=== PATIENT | female | born 1965 | race African-American/Black ===

== ENCOUNTER 2017-10-19 19:55 | Inpatient (IN) | payer MEDICAID ==
[~2017-10-19] VITALS: Ht 165.1 cm; Wt 56.4 kg
[2017-10-19] MEDS ORDERED: SODIUM CHLORIDE 0.9% 1,000 ML IV ONE ×2 (20:21→23:02)
[2017-10-19 21:02] LABS: CHLORIDE 110 mEq/L (98-107)
[2017-10-19 21:08] LABS: BASOPHILS % 0.6 % (0.0-2.0); EOSINOPHILS % 6.3 % (0.0-5.0); HEMATOCRIT. 32.8 % (36.0-48.0); HEMOGLOBIN. 10.9 g/dL (12.0-16.0); MEAN CORPUSCULAR VOLUME 96.5 fL (81.0-99.0); MEAN PLATELET VOLUME 7.7 fl (7.4-10.4); MONOCYTES % 5.3 % (2.0-8.0); NEUTROPHILS % 28.8 % (40.0-76.0); PLATELET 267 x1000/uL (130-400); RED CELL DISTRIBUTION WIDTH 13.9 % (11.6-14.6)
[2017-10-19 21:17] LABS: ETHANOL BLOOD 365 mg/dL
[2017-10-19 21:29] LABS: *AMPHETAMINES SCREEN URINE NEGATIVE (NEGATIVE)
[2017-10-19 21:30] LABS: *BARBITURATES SCREEN URINE NEGATIVE (NEGATIVE); *BENZODIAZEPINES SCREEN URINE PRESUMTIVE POSITIVE (NEGATIVE); *COCAINE SCREEN URINE NEGATIVE (NEGATIVE); METHADONE URINE SCREEN NEGATIVE (NEGATIVE); OPIATES URINE SCREEN NEGATIVE (NEGATIVE); PHENCYCLIDINE URINE SCREEN NEGATIVE (NEGATIVE)
[2017-10-19 21:31] LABS: CANNABINOID URINE SCREEN NEGATIVE (NEGATIVE)
[2017-10-20] VITALS (18 sets, daily range): BP systolic 82–133; BP diastolic 43–94
[2017-10-20] MEDS ORDERED: LORAZEPAM 2MG/ML CPJ IV PRN (04:00)
[2017-10-20] MEDS ORDERED: FOLIC ACID 1 MG, THIAMINE HCL 100 MG, MVI, ADULT NO.1 10 ML in DEXTROSE 5% WATER 1,000 ML IV SCH ×4 (06:00)
[2017-10-20] MEDS: PANTOPRAZOLE SODIUM 40 MG/VIAL IV SCH (08:22)
[2017-10-20] MEDS: THIAMINE HCL 100MG TABLET PO SCH (09:18)
[2017-10-20] MEDS: MIDODRINE HCL 5MG TABLET PO SCH ×3 (09:18→17:25)
[2017-10-20] MEDS: MULTIVITAMINS,THER W-MINERALS TABLET PO SCH (09:18)
[2017-10-20 09:31] LABS: BASOPHILS % 1.2 % (0.0-2.0); EOSINOPHILS % 7.7 % (0.0-5.0); HEMATOCRIT. 33.1 % (36.0-48.0); LYMPHOCYTES % 60.2 % (20.0-50.0); MEAN CORPUSCULAR HEMOGLOBIN 32.4 pg (28.0-32.0); MEAN CORPUSCULAR VOLUME 97.5 fL (81.0-99.0); MEAN PLATELET VOLUME 7.8 fl (7.4-10.4); MONOCYTES % 4.9 % (2.0-8.0); PLATELET 204 x1000/uL (130-400)
[2017-10-20 11:33] LABS: CHLORIDE 117 mEq/L (98-107)
[2017-10-20] MEDS: CHLORDIAZEPOXIDE 25MG CAPSULE PO SCH ×2 (13:14→21:05)
[2017-10-20 13:58] LABS: CLARITY URINE CLEAR (CLEAR); COLOR URINE YELLOW (YELLOW); KETONES URINE NEGATIVE (NEGATIVE); LEUKOCYTE ESTERASE URINE 2+ (NEGATIVE); NITRITE URINE NEGATIVE (NEGATIVE); OCCULT BLOOD URINE NEGATIVE (NEGATIVE); PROTEIN URINE NEGATIVE (NEGATIVE); SPECIFIC GRAVITY URINE 1.011 (1.005-1.030); UROBILINOGEN URINE 0.2 E.U./dL (0.2-1.0)
[2017-10-20] MEDS: DEXT 5%/0.45% NACL KCL 20MEQ/L 1,000 ML IV SCH (17:25)
[2017-10-21] VITALS (7 sets, daily range): BP systolic 117–141; BP diastolic 62–98
[2017-10-21] MEDS: CHLORDIAZEPOXIDE 25MG CAPSULE PO SCH (06:43)
[2017-10-21] MEDS: DEXT 5%/0.45% NACL KCL 20MEQ/L 1,000 ML IV SCH (06:43)
[2017-10-21 07:28] LABS: HEMATOCRIT 30.3 % (36.0-48.0); HEMOGLOBIN 10.4 g/dL (12.0-16.0); MEAN CORPUSCULAR HEMOGLOBIN 32.3 pg (28.0-32.0); MEAN CORPUSCULAR VOLUME 94.5 fL (81.0-99.0); PLATELET 205 x1000/uL (130-400); RED BLOOD CELL COUNT 3.21 mill/uL (4.2-5.4); RED CELL DISTRIBUTION WIDTH 13.6 % (11.6-14.6)
[2017-10-21 07:49] LABS: CHLORIDE 108 mEq/L (98-107)
[2017-10-21] MEDS: PANTOPRAZOLE SODIUM 40 MG/VIAL IV SCH (09:00)
[2017-10-21] MEDS: THIAMINE HCL 100MG TABLET PO SCH (09:00)
[2017-10-21] MEDS: MULTIVITAMINS,THER W-MINERALS TABLET PO SCH (09:00)
== END 2017-10-21 15:10 | disposition home or self-care (01) | DRG 816 ==
LOC: ER 20:45 → EDBEDREQ 10-20 00:25 → 5EST 10-20 00:37 → EDBEDREQ 10-20 00:38 → EDBEDREQSVC 10-20 00:38 → EDBEDREQTM 10-20 00:38 → ENRESERV 10-20 01:11
PROVIDERS: ADMIT Internal Medicine; ATTEND Internal Medicine
DX: T51.0X1A Toxic effect of ethanol, accidental (unintentional), initial encounter (principal); N17.0 Acute kidney failure with tubular necrosis; R57.1 Hypovolemic shock; G93.41 Metabolic encephalopathy; E87.8 Other disorders of electrolyte and fluid balance, not elsewhere classified; I95.9 Hypotension, unspecified; G40.909 Epilepsy, unspecified, not intractable, without status epilepticus; Z60.2 Problems related to living alone; Y90.8 Blood alcohol level of 240 mg/100 ml or more; F10.220 Alcohol dependence with intoxication, uncomplicated; Y92.89 Other specified places as the place of occurrence of the external cause
CPT/HCPCS: 36415; 51702; 70450; 80048; 80053; 80061; 80305; 80307; 80329; 81003; 83036; 84443; 85025; 85027; 96360; 96361; 97161; 99291; C9113; G0482; J3411; J3490; J7030; J7070; A4315

== ENCOUNTER 2017-10-25 12:58 | Emergency (ER) | payer MEDICAID ==
[~2017-10-25] VITALS: Ht 165.1 cm; Wt 55.0 kg
[2017-10-25] MEDS ORDERED: ACETAMINOPHEN 500MG TABLET PO ONE (13:45)
[2017-10-25] MEDS ORDERED: MAGNESIUM/ALUMINUM HYDROXIDE/SIMETHICONE 30ML UDC PO ONE (13:45)
[2017-10-25] MEDS ORDERED: ONDANSETRON 4MG ODT PO ONE (13:45)
[2017-10-25 14:36] LABS: BASOPHILS % 0.8 % (0.0-2.0); EOSINOPHILS % 7.2 % (0.0-5.0); HEMATOCRIT. 31.8 % (36.0-48.0); HEMOGLOBIN. 10.9 g/dL (12.0-16.0); LYMPHOCYTES % 53.6 % (20.0-50.0); MEAN CORPUSCULAR HEMOGLOBIN 32.5 pg (28.0-32.0); MEAN CORPUSCULAR VOLUME 95.2 fL (81.0-99.0); MEAN PLATELET VOLUME 7.1 fl (7.4-10.4); MONOCYTES % 5.3 % (2.0-8.0); NEUTROPHILS % 33.1 % (40.0-76.0); PLATELET 288 x1000/uL (130-400); RED BLOOD CELL COUNT 3.34 mill/uL (4.2-5.4); RED CELL DISTRIBUTION WIDTH 14.5 % (11.6-14.6)
[2017-10-25 14:40] LABS: CHLORIDE 114 mEq/L (98-107)
[2017-10-25 14:42] LABS: PROTHROMBIN TIME 10.4 sec (9.4-11.6)
[2017-10-25 14:48] LABS: CLARITY URINE CLEAR (CLEAR); COLOR URINE YELLOW (YELLOW); KETONES URINE NEGATIVE (NEGATIVE); LEUKOCYTE ESTERASE URINE NEGATIVE (NEGATIVE); NITRITE URINE NEGATIVE (NEGATIVE); OCCULT BLOOD URINE NEGATIVE (NEGATIVE); PROTEIN URINE NEGATIVE (NEGATIVE); SPECIFIC GRAVITY URINE 1.005 (1.005-1.030); UROBILINOGEN URINE 0.2 E.U./dL (0.2-1.0)
[2017-10-25] MEDS ORDERED: SODIUM CHLORIDE 0.9% 1,000 ML IV ONE (15:06)
[2017-10-25] MEDS ORDERED: KETOROLAC 30MG/ML VIAL IV STA (15:06)
[2017-10-25] MEDS ORDERED: ONDANSETRON HCL 4MG/2ML VIAL IV ONE (15:15)
[2017-10-25 15:51] LABS: ETHANOL BLOOD 300 mg/dL
[2017-10-25 17:41] LABS: *AMPHETAMINES SCREEN URINE NEGATIVE (NEGATIVE); *BARBITURATES SCREEN URINE NEGATIVE (NEGATIVE); *BENZODIAZEPINES SCREEN URINE PRESUMTIVE POSITIVE (NEGATIVE)
[2017-10-25 17:42] LABS: *COCAINE SCREEN URINE NEGATIVE (NEGATIVE); CANNABINOID URINE SCREEN NEGATIVE (NEGATIVE); METHADONE URINE SCREEN NEGATIVE (NEGATIVE); OPIATES URINE SCREEN NEGATIVE (NEGATIVE); PHENCYCLIDINE URINE SCREEN NEGATIVE (NEGATIVE)
[2017-10-25 20:41] VITALS: BP 110/75
== END 2017-10-25 20:40 | disposition home or self-care (01) ==
LOC: ER 13:01
DX: R10.84 Generalized abdominal pain (principal); F10.229 Alcohol dependence with intoxication, unspecified; F13.10 Sedative, hypnotic or anxiolytic abuse, uncomplicated; I12.9 Hypertensive chronic kidney disease with stage 1 through stage 4 chronic kidney disease, or unspecified chronic kidney disease; N18.9 Chronic kidney disease, unspecified; E11.9 Type 2 diabetes mellitus without complications; Y90.8 Blood alcohol level of 240 mg/100 ml or more; D63.1 Anemia in chronic kidney disease; F17.210 Nicotine dependence, cigarettes, uncomplicated
CPT/HCPCS: 36415; 80053; 80305; 80307; 80329; 81003; 81025; 82962; 83690; 85025; 85610; 99284; G0482; J7030; Q0162; J1885; J2405

== ENCOUNTER 2017-10-25 23:52 | Emergency (ER) | payer MEDICAID ==
[~2017-10-25] VITALS: Ht 160 cm; Wt 50.0 kg
[2017-10-26] MEDS ORDERED: ACETAMINOPHEN 325MG TABLET PO STA (06:26)
[2017-10-26 06:38] LABS: CLARITY URINE CLEAR (CLEAR); COLOR URINE YELLOW (YELLOW); KETONES URINE NEGATIVE (NEGATIVE); LEUKOCYTE ESTERASE URINE NEGATIVE (NEGATIVE); NITRITE URINE NEGATIVE (NEGATIVE); OCCULT BLOOD URINE NEGATIVE (NEGATIVE); PROTEIN URINE NEGATIVE (NEGATIVE); UROBILINOGEN URINE 0.2 E.U./dL (0.2-1.0)
[2017-10-26 06:50] LABS: *BARBITURATES SCREEN URINE NEGATIVE (NEGATIVE); *BENZODIAZEPINES SCREEN URINE PRESUMTIVE POSITIVE (NEGATIVE)
[2017-10-26 06:51] LABS: *AMPHETAMINES SCREEN URINE NEGATIVE (NEGATIVE); *COCAINE SCREEN URINE NEGATIVE (NEGATIVE); CANNABINOID URINE SCREEN NEGATIVE (NEGATIVE); METHADONE URINE SCREEN NEGATIVE (NEGATIVE); OPIATES URINE SCREEN NEGATIVE (NEGATIVE); PHENCYCLIDINE URINE SCREEN NEGATIVE (NEGATIVE)
[2017-10-26 06:53] LABS: CHLORIDE 112 mEq/L (98-107)
[2017-10-26 06:55] LABS: BASOPHILS % 0.8 % (0.0-2.0); EOSINOPHILS % 8.5 % (0.0-5.0); HEMATOCRIT. 27.2 % (36.0-48.0); LYMPHOCYTES % 61.8 % (20.0-50.0); MEAN CORPUSCULAR HEMOGLOBIN 31.6 pg (28.0-32.0); MEAN CORPUSCULAR VOLUME 95.5 fL (81.0-99.0); MEAN PLATELET VOLUME 6.8 fl (7.4-10.4); MONOCYTES % 7.1 % (2.0-8.0); NEUTROPHILS % 21.8 % (40.0-76.0); PLATELET 258 x1000/uL (130-400); RED BLOOD CELL COUNT 2.85 mill/uL (4.2-5.4); RED CELL DISTRIBUTION WIDTH 14.7 % (11.6-14.6)
[2017-10-26 06:57] LABS: ETHANOL BLOOD 239 mg/dL
[2017-10-26 08:20] VITALS: BP 141/82
== END 2017-10-26 08:30 | disposition home or self-care (01) ==
LOC: ER 10-26 00:55
DX: K80.80 Other cholelithiasis without obstruction (principal); F10.10 Alcohol abuse, uncomplicated; E11.9 Type 2 diabetes mellitus without complications; I10 Essential (primary) hypertension; Z86.73 Personal history of transient ischemic attack (TIA), and cerebral infarction without residual deficits; Y90.7 Blood alcohol level of 200-239 mg/100 ml
CPT/HCPCS: 36415; 74176; 80053; 80305; 81003; 83690; 85025; 99285; G0482

== ENCOUNTER 2017-10-26 10:44 | Emergency (ER) | payer MEDICAID ==
[~2017-10-26] VITALS: Ht 165.1 cm; Wt 69.0 kg
[2017-10-26] MEDS ORDERED: SODIUM CHLORIDE 0.9% 1,000 ML IV ONE (10:54)
[2017-10-26 11:23] LABS: BASOPHILS % 0.9 % (0.0-2.0); EOSINOPHILS % 7.3 % (0.0-5.0); HEMATOCRIT. 30.6 % (36.0-48.0); HEMOGLOBIN. 10.2 g/dL (12.0-16.0); LYMPHOCYTES % 48.2 % (20.0-50.0); MEAN CORPUSCULAR HEMOGLOBIN 32.1 pg (28.0-32.0); MEAN CORPUSCULAR VOLUME 96.3 fL (81.0-99.0); MEAN PLATELET VOLUME 7.2 fl (7.4-10.4); NEUTROPHILS % 36.6 % (40.0-76.0); PLATELET 308 x1000/uL (130-400); RED BLOOD CELL COUNT 3.17 mill/uL (4.2-5.4); RED CELL DISTRIBUTION WIDTH 14.5 % (11.6-14.6)
[2017-10-26 11:33] LABS: CHLORIDE 110 mEq/L (98-107)
[2017-10-26 11:47] LABS: ETHANOL BLOOD 368 mg/dL
[2017-10-26] MEDS ORDERED: MIDAZOLAM HCL 2 MG/2 ML VIAL IM ONE (14:30)
[2017-10-26 15:43] LABS: *AMPHETAMINES SCREEN URINE NEGATIVE (NEGATIVE); *BARBITURATES SCREEN URINE NEGATIVE (NEGATIVE); *BENZODIAZEPINES SCREEN URINE PRESUMTIVE POSITIVE (NEGATIVE); *COCAINE SCREEN URINE NEGATIVE (NEGATIVE); METHADONE URINE SCREEN NEGATIVE (NEGATIVE); OPIATES URINE SCREEN NEGATIVE (NEGATIVE)
[2017-10-26 15:44] LABS: CANNABINOID URINE SCREEN NEGATIVE (NEGATIVE); PHENCYCLIDINE URINE SCREEN NEGATIVE (NEGATIVE)
[2017-10-26 19:42] VITALS: BP 115/75
== END 2017-10-26 19:47 | disposition home or self-care (01) ==
LOC: ER 10:44
DX: T51.0X1A Toxic effect of ethanol, accidental (unintentional), initial encounter (principal); G92 Toxic encephalopathy; E86.0 Dehydration; F10.229 Alcohol dependence with intoxication, unspecified; R56.9 Unspecified convulsions; Y90.8 Blood alcohol level of 240 mg/100 ml or more; Y92.89 Other specified places as the place of occurrence of the external cause
CPT/HCPCS: 36415; 70450; 80048; 80305; 80307; 80329; 83735; 84484; 85025; 93005; 96360; 96361; 96372; 99285; G0482; J2250; J7030; Z7610

== ENCOUNTER 2018-04-06 16:52 | Emergency (ER) | payer MEDICAID ==
[~2018-04-06] VITALS: Ht 165.1 cm; Wt 64.0 kg
[2018-04-06] MEDS ORDERED: SODIUM CHLORIDE 0.9% 1,000 ML IV ONE (17:36)
[2018-04-06] MEDS ORDERED: MAGNESIUM/ALUMINUM HYDROXIDE/SIMETHICONE 30ML UDC PO STA (17:36)
[2018-04-06] MEDS ORDERED: ONDANSETRON HCL 4MG/2ML INJ IV STA (17:36)
[2018-04-06] MEDS ORDERED: FAMOTIDINE 20MG/2ML VIAL IV STA (17:36)
[2018-04-06] MEDS ORDERED: MORPHINE SULFATE 10 MG/ML CPJ IV ONE (17:45)
[2018-04-06] MEDS ORDERED: LORAZEPAM 2MG/ML CPJ IV ONE (17:45)
[2018-04-06 19:48] LABS: BASOPHILS % 0.8 % (0.0-2.0); CHLORIDE 114 mEq/L (98-107); EOSINOPHILS % 6.1 % (0.0-5.0); HEMATOCRIT. 35.4 % (36.0-48.0); HEMOGLOBIN. 11.9 g/dL (12.0-16.0); LYMPHOCYTES % 41.6 % (20.0-50.0); MEAN CORPUSCULAR HEMOGLOBIN 33.1 pg (28.0-32.0); MEAN CORPUSCULAR VOLUME 98.6 fL (81.0-99.0); MEAN PLATELET VOLUME 8.3 fl (7.4-10.4); MONOCYTES % 5.2 % (2.0-8.0); NEUTROPHILS % 46.3 % (40.0-76.0); PLATELET 291 x1000/uL (130-400); RED BLOOD CELL COUNT 3.58 mill/uL (4.2-5.4); RED CELL DISTRIBUTION WIDTH 13.9 % (11.6-14.6)
[2018-04-06 19:49] LABS: INR 1.1; PROTHROMBIN TIME 10.7 sec (9.1-11.1)
[2018-04-06 19:52] LABS: ETHANOL BLOOD 269 mg/dL
[2018-04-06 20:01] LABS: CARBAMAZEPINE < 0.5 ug/mL (4-12); PHENOBARBITAL < 2.1 ug/mL (15.0-40.0); VALPROIC ACID < 3.0 ug/mL (50-100)
[2018-04-06 21:54] VITALS: BP 85/55
== END 2018-04-07 02:35 | disposition home or self-care (01) ==
LOC: ER 16:52
DX: R10.84 Generalized abdominal pain (principal); R11.0 Nausea; F10.20 Alcohol dependence, uncomplicated; I10 Essential (primary) hypertension; Y90.8 Blood alcohol level of 240 mg/100 ml or more
CPT/HCPCS: 36415; 71045; 80053; 80156; 80165; 80184; 80185; 83690; 84443; 84484; 85025; 85610; 93005; 96361; 96374; 96375; 99284; G0482; J2060; J2270; J2405; J3490; J7030

== ENCOUNTER 2018-05-18 18:19 | Inpatient (IN) | payer MEDICAID ==
[~2018-05-18] VITALS: Ht 160 cm; Wt 52.6 kg
[2018-05-19] MEDS ORDERED: HYDROCODONE/ACETAMINOPHEN 5/325MG TABLET PO STA (03:04)
[2018-05-19] MEDS ORDERED: ONDANSETRON 4MG ODT PO STA (03:04)
[2018-05-19 03:37] LABS: BASOPHILS % 0.7 % (0.0-2.0); EOSINOPHILS % 4.4 % (0.0-5.0); HEMATOCRIT. 36.8 % (36.0-48.0); HEMOGLOBIN. 12.1 g/dL (12.0-16.0); LYMPHOCYTES % 32.4 % (20.0-50.0); MONOCYTES % 5.4 % (2.0-8.0); NEUTROPHILS % 57.1 % (40.0-76.0); PLATELET 209 x1000/uL (130-400); RED BLOOD CELL COUNT 3.79 mill/uL (4.2-5.4); RED CELL DISTRIBUTION WIDTH 13.9 % (11.6-14.6)
[2018-05-19 03:43] LABS: CHLORIDE 112 mEq/L (98-107)
[2018-05-19] MEDS ORDERED: SODIUM CHLORIDE 0.9% 1,000 ML IV ONE (05:12)
[2018-05-19] MEDS ORDERED: DOCUSATE SODIUM 100MG CAPSULE PO PRN (08:00)
[2018-05-19] MEDS ORDERED: GUAIFENESIN 200MG/10ML SUGAR FREE UDC PO PRN (08:00)
[2018-05-19] MEDS ORDERED: DIPHENHYDRAMINE 50MG/ML VIAL IV PRN (08:00)
[2018-05-19] MEDS ORDERED: IPRATROPIUM/ALBUTEROL 0.5-3(2.5)MG/3ML NEB INH PRN (08:00)
[2018-05-19 08:22] LABS: PHOSPHORUS 3.4 mg/dL (2.5-4.9)
[2018-05-19] MEDS: ACETAMINOPHEN 325MG TABLET PO PRN (09:25)
[2018-05-19 12:00] VITALS: BP 155/99
[2018-05-19 12:24] LABS: HEPATITIS B SURFACE ANTIGEN NEGATIVE
[2018-05-19 12:51] VITALS: BP 153/97
[2018-05-19 12:54] LABS: HEPATITIS A AB IGM NEGATIVE (NEGATIVE)
[2018-05-19 16:00] VITALS: BP 160/99
[2018-05-19 16:14] LABS: CREATINE KINASE 274 IU/L (26-192)
[2018-05-19] MEDS: PANTOPRAZOLE SODIUM 40 MG/VIAL IV SCH (18:12)
[2018-05-19] MEDS: MORPHINE SULFATE 4 MG/ML CPJ (NOT FOR IM USE) IV PRN (19:56)
[2018-05-19 20:00] VITALS: BP 165/100
[2018-05-19] MEDS ORDERED: DEXTROSE 50% WATER 50ML SYRINGE IV PRN (22:30)
[2018-05-20] VITALS: BP 174/98
[2018-05-20] MEDS: MORPHINE SULFATE 4 MG/ML CPJ (NOT FOR IM USE) IV PRN ×6 (00:10→22:21)
[2018-05-20] MEDS: CLONIDINE 0.1MG TABLET PO PRN ×2 (00:13→17:46)
[2018-05-20 00:45] LABS: CREATINE KINASE 256 IU/L (26-192)
[2018-05-20 04:00] VITALS: BP 155/101
[2018-05-20] MEDS: BLOOD SUGAR DIAGNOSTIC STRIP TEST SCH ×4 (07:20→21:00)
[2018-05-20] MEDS: INSULIN LISPRO 100 UNITS/ML SUBCUT SCH ×4 (07:50→21:00)
[2018-05-20 08:00] VITALS: BP 123/81
[2018-05-20] MEDS: ACETAMINOPHEN 325MG TABLET PO PRN ×2 (08:59→17:46)
[2018-05-20] MEDS: PANTOPRAZOLE SODIUM 40 MG/VIAL IV SCH (08:59)
[2018-05-20 12:00] VITALS: BP 142/96
[2018-05-20 12:32] LABS: BASOPHILS % 0.5 % (0.0-2.0); EOSINOPHILS % 4.1 % (0.0-5.0); HEMATOCRIT. 33.4 % (36.0-48.0); HEMOGLOBIN. 11.1 g/dL (12.0-16.0); LYMPHOCYTES % 33.4 % (20.0-50.0); MEAN CORPUSCULAR HEMOGLOBIN 32.7 pg (28.0-32.0); MEAN CORPUSCULAR VOLUME 98.4 fL (81.0-99.0); MEAN PLATELET VOLUME 8.7 fl (7.4-10.4); MONOCYTES % 7.1 % (2.0-8.0); NEUTROPHILS % 54.9 % (40.0-76.0); PLATELET 165 x1000/uL (130-400); RED BLOOD CELL COUNT 3.39 mill/uL (4.2-5.4); RED CELL DISTRIBUTION WIDTH 13.5 % (11.6-14.6)
[2018-05-20 12:37] LABS: CHLORIDE 102 mEq/L (98-107)
[2018-05-20 12:45] LABS: LDL CHOLESTEROL 45 mg/dL (5-100)
[2018-05-20 12:48] LABS: HDL CHOLESTEROL 60 mg/dL (40-59)
[2018-05-20 16:00] VITALS: BP 123/100
[2018-05-20 19:00] VITALS: BP 94/55
[2018-05-21] VITALS: BP 141/87
[2018-05-21] MEDS: ONDANSETRON HCL 4MG/2ML INJ IV PRN ×2 (02:47→21:48)
[2018-05-21] MEDS: MORPHINE SULFATE 4 MG/ML CPJ (NOT FOR IM USE) IV PRN ×4 (02:52→20:18)
[2018-05-21 04:00] VITALS: BP 136/88
[2018-05-21 04:11] LABS: HIV SCREEN 4G Non Reactive (Non Reactive)
[2018-05-21] MEDS: BLOOD SUGAR DIAGNOSTIC STRIP TEST SCH ×4 (07:39→20:17)
[2018-05-21] MEDS: INSULIN LISPRO 100 UNITS/ML SUBCUT SCH ×4 (07:39→20:27)
[2018-05-21 08:00] VITALS: BP 135/89
[2018-05-21] MEDS: PANTOPRAZOLE SODIUM 40 MG/VIAL IV SCH ×2 (09:00→09:39)
[2018-05-21] MEDS: ACETAMINOPHEN 325MG TABLET PO PRN ×2 (09:40→18:40)
[2018-05-21 10:06] LABS: BASOPHILS % 0.6 % (0.0-2.0); EOSINOPHILS % 7.1 % (0.0-5.0); HEMATOCRIT. 34.8 % (36.0-48.0); HEMOGLOBIN. 11.7 g/dL (12.0-16.0); LYMPHOCYTES % 32.1 % (20.0-50.0); MEAN CORPUSCULAR HEMOGLOBIN 32.5 pg (28.0-32.0); MEAN CORPUSCULAR VOLUME 96.9 fL (81.0-99.0); MEAN PLATELET VOLUME 8.5 fl (7.4-10.4); MONOCYTES % 9.6 % (2.0-8.0); NEUTROPHILS % 50.6 % (40.0-76.0); PLATELET 151 x1000/uL (130-400); RED BLOOD CELL COUNT 3.59 mill/uL (4.2-5.4)
[2018-05-21 10:13] LABS: CHLORIDE 104 mEq/L (98-107)
[2018-05-21] MEDS ORDERED: ONDANSETRON 4MG ODT PO PRN (11:45)
[2018-05-21] MEDS ORDERED: HYDROCODONE/ACETAMINOPHEN 5/325MG TABLET PO PRN (11:45)
[2018-05-21 12:00] VITALS: BP 149/93
[2018-05-21 16:00] VITALS: BP_SYST 120; BP_SYST 160; BP_DIAS 108
[2018-05-21] MEDS: CLONIDINE 0.1MG TABLET PO PRN (19:00)
[2018-05-21 20:00] VITALS: BP 160/114
[2018-05-21 21:09] LABS: CLARITY URINE CLEAR (CLEAR); COLOR URINE YELLOW (YELLOW); KETONES URINE TRACE (NEGATIVE); LEUKOCYTE ESTERASE URINE TRACE (NEGATIVE); NITRITE URINE NEGATIVE (NEGATIVE); OCCULT BLOOD URINE TRACE (NEGATIVE); PROTEIN URINE NEGATIVE (NEGATIVE); SPECIFIC GRAVITY URINE 1.007 (1.005-1.030); UROBILINOGEN URINE 0.2 E.U./dL (0.2-1.0)
[2018-05-22] VITALS: BP 131/84
[2018-05-22] MEDS: MORPHINE SULFATE 4 MG/ML CPJ (NOT FOR IM USE) IV PRN ×4 (00:25→14:21)
[2018-05-22] MEDS: ONDANSETRON HCL 4MG/2ML INJ IV PRN ×2 (03:59→10:01)
[2018-05-22 04:00] VITALS: BP 137/98
[2018-05-22 06:44] LABS: BASOPHILS % 0.5 % (0.0-2.0); EOSINOPHILS % 7.2 % (0.0-5.0); HEMATOCRIT. 34.1 % (36.0-48.0); HEMOGLOBIN. 11.6 g/dL (12.0-16.0); LYMPHOCYTES % 31.6 % (20.0-50.0); MEAN CORPUSCULAR VOLUME 96.9 fL (81.0-99.0); MEAN PLATELET VOLUME 9.5 fl (7.4-10.4); MONOCYTES % 8.2 % (2.0-8.0); NEUTROPHILS % 52.5 % (40.0-76.0); PLATELET 146 x1000/uL (130-400); RED BLOOD CELL COUNT 3.52 mill/uL (4.2-5.4)
[2018-05-22] MEDS: BLOOD SUGAR DIAGNOSTIC STRIP TEST SCH ×2 (06:57→12:20)
[2018-05-22] MEDS: INSULIN LISPRO 100 UNITS/ML SUBCUT SCH ×2 (06:58→12:50)
[2018-05-22 07:08] LABS: CHLORIDE 101 mEq/L (98-107)
[2018-05-22 08:00] VITALS: BP 130/93
[2018-05-22 12:00] VITALS: BP 125/89
[2018-05-22 13:47] VITALS: BP 125/89
[2018-05-22 15:58] VITALS: BP 156/98
== END 2018-05-22 16:52 | disposition home or self-care (01) | DRG 241 ==
LOC: ER 18:19 → 6EST 05-19 05:14 → EDBEDREQTM 05-19 05:16 → EDBEDREQ 05-19 05:16 → ENRESERV 05-19 10:38 → 6EST 05-19 11:50
PROVIDERS: ADMIT Internal Medicine; ATTEND Internal Medicine
DX: K29.20 Alcoholic gastritis without bleeding (principal); E87.0 Hyperosmolality and hypernatremia; R10.13 Epigastric pain; K80.70 Calculus of gallbladder and bile duct without cholecystitis without obstruction; I10 Essential (primary) hypertension; E11.9 Type 2 diabetes mellitus without complications; G40.909 Epilepsy, unspecified, not intractable, without status epilepticus; J45.909 Unspecified asthma, uncomplicated; F10.10 Alcohol abuse, uncomplicated; F17.200 Nicotine dependence, unspecified, uncomplicated; Z71.41 Alcohol abuse counseling and surveillance of alcoholic; Z68.20 Body mass index [BMI] 20.0-20.9, adult
CPT/HCPCS: 36415; 71045; 74181; 76705; 80048; 80061; 80076; 82550; 82962; 83735; 84100; 84443; 86705; 86709; 86803; 87340; 87389; 93970; 97161; 97166; 99285; C1893; C9113; J1815; J2270; J2405; J7030; Q0162

== ENCOUNTER 2018-09-12 03:10 | Emergency (ER) | payer MEDICAID ==
[~2018-09-12] VITALS: Ht 165.1 cm; Wt 55.0 kg
[2018-09-12 05:28] LABS: HEMATOCRIT. 41.5 % (36.0-48.0); MEAN CORPUSCULAR HEMOGLOBIN 32.4 pg (28.0-32.0); MEAN CORPUSCULAR VOLUME 96.4 fL (81.0-99.0); MEAN PLATELET VOLUME 8.7 fl (7.4-10.4); PLATELET 269 x1000/uL (130-400); RED BLOOD CELL COUNT 4.31 mill/uL (4.2-5.4); RED CELL DISTRIBUTION WIDTH 13.6 % (11.6-14.6)
[2018-09-12 05:34] LABS: CHLORIDE 99 mEq/L (98-107)
[2018-09-12 05:41] LABS: ETHANOL BLOOD 65 mg/dL
[2018-09-12 05:49] LABS: PLATELET ESTIMATE NORMAL
[2018-09-12] MEDS ORDERED: VISCOUS LIDOCAINE 2% 15 ML UDC MM STA (05:51)
[2018-09-12] MEDS ORDERED: MAGNESIUM/ALUMINUM HYDROXIDE/SIMETHICONE 30ML UDC PO ONE (06:00)
[2018-09-12] MEDS ORDERED: KETOROLAC 30MG/ML VIAL IV ONE (06:30)
[2018-09-12 06:51] LABS: CLARITY URINE CLEAR (CLEAR); COLOR URINE YELLOW (YELLOW); KETONES URINE NEGATIVE (NEGATIVE); LEUKOCYTE ESTERASE URINE NEGATIVE (NEGATIVE); NITRITE URINE NEGATIVE (NEGATIVE); OCCULT BLOOD URINE NEGATIVE (NEGATIVE); PH URINE 5.5 (4.5-8.0); PROTEIN URINE TRACE (NEGATIVE); SPECIFIC GRAVITY URINE 1.024 (1.005-1.030)
[2018-09-12 07:24] VITALS: BP 128/81
[2018-09-12 07:26] LABS: *AMPHETAMINES SCREEN URINE NEGATIVE (NEGATIVE); *BARBITURATES SCREEN URINE NEGATIVE (NEGATIVE); *BENZODIAZEPINES SCREEN URINE PRESUMTIVE POSITIVE (NEGATIVE); *COCAINE SCREEN URINE NEGATIVE (NEGATIVE); METHADONE URINE SCREEN NEGATIVE (NEGATIVE)
[2018-09-12 07:27] LABS: CANNABINOID URINE SCREEN NEGATIVE (NEGATIVE); OPIATES URINE SCREEN NEGATIVE (NEGATIVE); PHENCYCLIDINE URINE SCREEN NEGATIVE (NEGATIVE)
== END 2018-09-12 07:26 | disposition home or self-care (01) ==
LOC: ER 03:10
DX: K29.20 Alcoholic gastritis without bleeding (principal); F10.129 Alcohol abuse with intoxication, unspecified; Y90.3 Blood alcohol level of 60-79 mg/100 ml; I10 Essential (primary) hypertension; E11.9 Type 2 diabetes mellitus without complications; Z79.899 Other long term (current) drug therapy; Z86.73 Personal history of transient ischemic attack (TIA), and cerebral infarction without residual deficits
CPT/HCPCS: 36415; 80053; 80305; 80320; 81003; 83690; 85025; 93005; 96374; 99284; J1885; G0480

== ENCOUNTER 2018-09-12 07:37 | Inpatient (IN) | payer MEDICAID ==
[~2018-09-12] VITALS: Ht 160 cm; Wt 53.5 kg
[2018-09-12] MEDS ORDERED: MORPHINE SULFATE 4 MG/ML CPJ (NOT FOR IM USE) IV STA (08:36)
[2018-09-12] MEDS ORDERED: ONDANSETRON HCL 4MG/2ML INJ IV STA (08:36)
[2018-09-12] MEDS ORDERED: FAMOTIDINE 20MG/2ML VIAL IV STA (08:36)
[2018-09-12 09:57] LABS: HEMATOCRIT. 42.7 % (36.0-48.0); HEMOGLOBIN. 14.3 g/dL (12.0-16.0); MEAN CORPUSCULAR HEMOGLOBIN 31.8 pg (28.0-32.0); MEAN CORPUSCULAR VOLUME 94.9 fL (81.0-99.0); MEAN PLATELET VOLUME 8.3 fl (7.4-10.4); PLATELET 268 x1000/uL (130-400); RED CELL DISTRIBUTION WIDTH 13.5 % (11.6-14.6)
[2018-09-12 10:03] LABS: CHLORIDE 98 mEq/L (98-107); PROTHROMBIN TIME 10.6 sec (9.6-11.0)
[2018-09-12 10:07] LABS: ETHANOL BLOOD < 10 mg/dL
[2018-09-12 10:22] LABS: PLATELET ESTIMATE NORMAL
[2018-09-12] MEDS ORDERED: ACETAMINOPHEN 650MG SUPP PR PRN (11:15)
[2018-09-12] MEDS ORDERED: IPRATROPIUM/ALBUTEROL 0.5-3(2.5)MG/3ML NEB INH PRN (11:15)
[2018-09-12] MEDS ORDERED: GUAIFENESIN 200MG/10ML SUGAR FREE UDC PO PRN (11:15)
[2018-09-12] MEDS ORDERED: LORAZEPAM 2MG/ML CPJ IV PRN (11:15)
[2018-09-12] MEDS ORDERED: ENOXAPARIN 40MG/0.4ML SYR SUBCUT NR (12:00)
[2018-09-12] MEDS: DEXT 5%/0.45% NACL 1000ML 1,000 ML IV SCH (12:00)
[2018-09-12] MEDS: MORPHINE SULFATE 2 MG/ML CPJ (NOT FOR IM USE) IV PRN ×3 (12:50→21:20)
[2018-09-12 13:20] VITALS: BP 129/86
[2018-09-12 13:30] VITALS: BP 129/86
[2018-09-12 20:00] VITALS: BP 118/83
[2018-09-12] MEDS: FAMOTIDINE 20MG/2ML VIAL IV SCH (21:24)
[2018-09-13] VITALS: BP 113/77
[2018-09-13] MEDS: MORPHINE SULFATE 2 MG/ML CPJ (NOT FOR IM USE) IV PRN ×6 (02:20→22:05)
[2018-09-13 04:00] VITALS: BP 113/87
[2018-09-13 08:00] VITALS: BP 113/78
[2018-09-13] MEDS: FAMOTIDINE 20MG/2ML VIAL IV SCH ×2 (09:00→21:47)
[2018-09-13 12:00] VITALS: BP 114/79
[2018-09-13] MEDS: ENOXAPARIN 40MG/0.4ML SYR SUBCUT SCH (12:00)
[2018-09-13 16:00] VITALS: BP_SYST 103; BP_SYST 112; BP_DIAS 58; BP_DIAS 69
[2018-09-13 16:10] LABS: BASOPHILS % 0.3 % (0.0-2.0); EOSINOPHILS % 3.9 % (0.0-5.0); HEMATOCRIT. 33.9 % (36.0-48.0); HEMOGLOBIN. 11.4 g/dL (12.0-16.0); LYMPHOCYTES % 24.8 % (20.0-50.0); MEAN CORPUSCULAR HEMOGLOBIN 32.3 pg (28.0-32.0); MEAN CORPUSCULAR VOLUME 95.7 fL (81.0-99.0); MEAN PLATELET VOLUME 8.6 fl (7.4-10.4); MONOCYTES % 13.5 % (2.0-8.0); NEUTROPHILS % 57.5 % (40.0-76.0); PLATELET 179 x1000/uL (130-400); RED BLOOD CELL COUNT 3.54 mill/uL (4.2-5.4); RED CELL DISTRIBUTION WIDTH 13.6 % (11.6-14.6)
[2018-09-13 16:17] LABS: CHLORIDE 102 mEq/L (98-107)
[2018-09-13] MEDS: DEXT 5%/0.45% NACL 1000ML 1,000 ML IV SCH ×2 (17:02→18:08)
[2018-09-13 20:00] VITALS: BP 116/79
[2018-09-13] MEDS ORDERED: POTASSIUM CHLORIDE INJ 40 MEQ in DEXT 5% WATER 500 ML IV NR (22:00)
[2018-09-14] VITALS: BP 134/89
[2018-09-14] MEDS: DEXT 5%/0.45% NACL 1000ML 1,000 ML IV SCH ×2 (02:03→17:08)
[2018-09-14] MEDS: MORPHINE SULFATE 2 MG/ML CPJ (NOT FOR IM USE) IV PRN ×4 (02:08→20:38)
[2018-09-14 04:00] VITALS: BP 126/86
[2018-09-14 08:00] VITALS: BP 110/79
[2018-09-14] MEDS: FAMOTIDINE 20MG/2ML VIAL IV SCH ×2 (09:18→20:02)
[2018-09-14] MEDS ORDERED: MORPHINE SULFATE 2 MG/ML CPJ (NOT FOR IM USE) IV PRN (10:30)
[2018-09-14 11:42] VITALS: BP 115/95
[2018-09-14] MEDS: ENOXAPARIN 40MG/0.4ML SYR SUBCUT SCH (12:00)
[2018-09-14 15:48] VITALS: BP 111/77
[2018-09-14 20:00] VITALS: BP 124/89
[2018-09-15] VITALS: BP 121/88
[2018-09-15 04:00] VITALS: BP 116/81
[2018-09-15] MEDS: DEXT 5%/0.45% NACL 1000ML 1,000 ML IV SCH ×2 (04:08→08:34)
[2018-09-15] MEDS: MORPHINE SULFATE 2 MG/ML CPJ (NOT FOR IM USE) IV PRN (04:48)
[2018-09-15 08:00] VITALS: BP 96/64
[2018-09-15] MEDS: FAMOTIDINE 20MG/2ML VIAL IV SCH ×2 (08:33→20:09)
[2018-09-15] MEDS: ENOXAPARIN 40MG/0.4ML SYR SUBCUT SCH (11:11)
[2018-09-15 11:44] VITALS: BP 110/79
[2018-09-15] MEDS ORDERED: MORPHINE SULFATE 2 MG/ML CPJ (NOT FOR IM USE) IV PRN (12:00)
[2018-09-15 16:00] VITALS: BP 130/97
[2018-09-15 20:00] VITALS: BP 144/81
[2018-09-15] MEDS: ACETAMINOPHEN 325MG TABLET PO PRN (20:21)
[2018-09-16] VITALS: BP 118/80
[2018-09-16 02:35] VITALS: BP 118/80
[2018-09-16 04:00] VITALS: BP 145/99
[2018-09-16] MEDS: ACETAMINOPHEN 325MG TABLET PO PRN (06:22)
[2018-09-16 08:00] VITALS: BP 141/98
[2018-09-16] MEDS ORDERED: DIATR MEGLU/DIATRIZOATE SOLN 30ML PO SCH (08:00)
[2018-09-16] MEDS: FAMOTIDINE 20MG/2ML VIAL IV SCH ×2 (09:19→21:00)
[2018-09-16] MEDS: ONDANSETRON HCL 4MG/2ML INJ IV PRN (09:19)
[2018-09-16 09:34] LABS: CHLORIDE 102 mEq/L (98-107)
[2018-09-16 09:40] LABS: HEMATOCRIT. 41.3 % (36.0-48.0); MEAN CORPUSCULAR HEMOGLOBIN 32.5 pg (28.0-32.0); MEAN CORPUSCULAR VOLUME 96.3 fL (81.0-99.0); MEAN PLATELET VOLUME 7.8 fl (7.4-10.4); PLATELET 284 x1000/uL (130-400); RED BLOOD CELL COUNT 4.29 mill/uL (4.2-5.4); RED CELL DISTRIBUTION WIDTH 12.9 % (11.6-14.6)
[2018-09-16] MEDS ORDERED: DIATR MEGLU/DIATRIZOATE SOLN 120ML ONE (10:37)
[2018-09-16 11:49] LABS: PLATELET ESTIMATE NORMAL
[2018-09-16] MEDS: ENOXAPARIN 40MG/0.4ML SYR SUBCUT SCH (13:54)
[2018-09-16] MEDS ORDERED: DEXT 5%/0.9% NACL 1,000 ML IV SCH (14:00)
[2018-09-16 16:00] VITALS: BP 118/94
[2018-09-16 20:00] VITALS: BP 114/85
[2018-09-16] MEDS: ACETAMINOPHEN 650MG SUPP PR PRN (20:15)
[2018-09-17] VITALS: BP 114/86
[2018-09-17] MEDS: ONDANSETRON HCL 4MG/2ML INJ IV PRN (01:49)
[2018-09-17 04:00] VITALS: BP 130/88
[2018-09-17] MEDS ORDERED: MIDAZOLAM HCL 2 MG/2 ML VIAL ONE (06:45)
[2018-09-17] MEDS ORDERED: PROPOFOL 200MG/20ML VIAL IV ONE (06:45)
[2018-09-17] MEDS ORDERED: ROCURONIUM BROMIDE 10MG/ML VIAL 5ML IV ONE (06:45)
[2018-09-17] MEDS ORDERED: FENTANYL CITRATE/PF 50MCG/ML 2ML VIAL ONE ×2 (06:45→08:16)
[2018-09-17] MEDS ORDERED: PHENYLEPHRINE HCL 10 MG/ML 1ML (IV VIAL) IV ONE (06:46)
[2018-09-17] MEDS ORDERED: SUCCINYLCHOLINE CHLORIDE 200MG/10ML IV ONE (06:46)
[2018-09-17] MEDS ORDERED: LIDOCAINE HCL 1% 20ML VIAL (Pyxis) INJ ONE (06:46)
[2018-09-17] MEDS ORDERED: ALBUTEROL 90MCG/PUFF 17GM INHALER INH ONE (06:52)
[2018-09-17] MEDS ORDERED: BUPIVACAINE HCL/PF 0.5% (5MG/ML) 10ML ONE (06:58)
[2018-09-17] MEDS ORDERED: METRONIDAZOLE 500 MG PREMIX 100 ML IV ONE (07:37)
[2018-09-17] MEDS ORDERED: CEFAZOLIN SODIUM 1000MG/VIAL ONE (07:38)
[2018-09-17] MEDS ORDERED: BUPIVACAINE HCL 0.5% 125 ML in ON-Q PM012 DRUG DELIV DEVICE 1 EA IR SCH (08:30)
[2018-09-17] MEDS ORDERED: KETOROLAC 30MG/ML VIAL ONE (08:33)
[2018-09-17] MEDS ORDERED: FENTANYL CITRATE/PF 50MCG/ML 2ML VIAL IV PRN (08:45)
[2018-09-17] MEDS ORDERED: ONDANSETRON HCL 4MG/2ML INJ IV PRN (08:45)
[2018-09-17] MEDS ORDERED: MORPHINE SULFATE 2 MG/ML CPJ (NOT FOR IM USE) IV PRN (08:45)
[2018-09-17] MEDS ORDERED: MEPERIDINE HCL/PF 25MG/ML CPJ IV PRN (08:45)
[2018-09-17] MEDS ORDERED: METOCLOPRAMIDE HCL 10MG/2ML VIAL ONE (09:03)
[2018-09-17] MEDS ORDERED: HYDRALAZINE 20MG/ML VIAL ONE (09:03)
[2018-09-17] MEDS ORDERED: ONDANSETRON HCL 4MG/2ML INJ ONE (09:03)
[2018-09-17] MEDS ORDERED: NEOSTIGMINE METHYLSULFATE 1MG/ML 10 ML VIAL ONE (09:16)
[2018-09-17] MEDS ORDERED: GLYCOPYRROLATE 0.2 MG/ML 2ML VIAL ONE (09:17)
[2018-09-17] MEDS: HYDROMORPHONE HCL/PF 2MG/ML CPJ IV PRN ×4 (09:47→23:57)
[2018-09-17 11:56] VITALS: BP 100/63
[2018-09-17] MEDS: FAMOTIDINE 20MG/2ML VIAL IV SCH ×2 (11:58→21:19)
[2018-09-17] MEDS: ENOXAPARIN 40MG/0.4ML SYR SUBCUT SCH (11:58)
[2018-09-17] MEDS: DEXT 5%/0.45% NACL KCL 20MEQ/L 1,000 ML IV SCH ×2 (11:58→19:00)
[2018-09-17 16:00] VITALS: BP 107/74
[2018-09-17 20:00] VITALS: BP 108/68
[2018-09-18] VITALS: BP 126/79
[2018-09-18] MEDS: HALOPERIDOL LACTATE 5MG/ML VIAL IM PRN ×2 (03:15→21:12)
[2018-09-18 04:00] VITALS: BP 111/88
[2018-09-18] MEDS: HYDROMORPHONE HCL/PF 2MG/ML CPJ IV PRN ×3 (04:07→17:34)
[2018-09-18 07:36] LABS: CHLORIDE 112 mEq/L (98-107)
[2018-09-18 08:00] VITALS: BP 150/99
[2018-09-18] MEDS: FAMOTIDINE 20MG/2ML VIAL IV SCH ×2 (09:00→22:19)
[2018-09-18] MEDS: ENOXAPARIN 40MG/0.4ML SYR SUBCUT SCH (11:59)
[2018-09-18 12:00] VITALS: BP 157/108
[2018-09-18] MEDS ORDERED: LIDOCAINE HCL 1% 20ML VIAL (Pyxis) INJ ONE (15:16)
[2018-09-18] MEDS ORDERED: SODIUM BICARBONATE 4% (2.4MEQ) 5ML VIAL IV ONE (15:16)
[2018-09-19] MEDS: ACETAMINOPHEN 325MG TABLET PO PRN ×2 (00:24→00:26)
[2018-09-19] MEDS: ONDANSETRON HCL 4MG/2ML INJ IV PRN (02:58)
[2018-09-19] MEDS: DEXT 5%/0.45% NACL KCL 20MEQ/L 1,000 ML IV SCH (03:44)
[2018-09-19] MEDS: HYDROMORPHONE HCL/PF 2MG/ML CPJ IV PRN ×5 (04:39→22:56)
[2018-09-19] MEDS: ACETAMINOPHEN 650MG SUPP PR PRN (05:31)
[2018-09-19 08:00] VITALS: BP 119/71
[2018-09-19] MEDS: FAMOTIDINE 20MG/2ML VIAL IV SCH ×2 (09:41→20:10)
[2018-09-19 12:08] VITALS: BP 129/93
[2018-09-19] MEDS: ENOXAPARIN 40MG/0.4ML SYR SUBCUT SCH (13:33)
[2018-09-19 16:06] VITALS: BP 131/88
[2018-09-19 20:00] VITALS: BP 149/100
[2018-09-20] VITALS: BP 151/97
[2018-09-20] MEDS: HYDROMORPHONE HCL/PF 2MG/ML CPJ IV PRN ×6 (01:55→21:11)
[2018-09-20] MEDS: DIPHENHYDRAMINE 50MG/ML VIAL IV PRN ×3 (03:47→21:10)
[2018-09-20 04:00] VITALS: BP 153/97
[2018-09-20 08:00] VITALS: BP 144/97
[2018-09-20] MEDS: FAMOTIDINE 20MG/2ML VIAL IV SCH ×2 (08:24→21:09)
[2018-09-20 11:48] VITALS: BP 139/96
[2018-09-20] MEDS: ENOXAPARIN 40MG/0.4ML SYR SUBCUT SCH (13:12)
[2018-09-20 16:14] VITALS: BP 152/98
[2018-09-20 20:00] VITALS: BP 146/86
[2018-09-21] VITALS: BP 149/80
[2018-09-21] MEDS: HYDROMORPHONE HCL/PF 2MG/ML CPJ IV PRN ×5 (00:30→20:30)
[2018-09-21 04:00] VITALS: BP 138/79
[2018-09-21] MEDS: DEXT 5%/0.45% NACL KCL 20MEQ/L 1,000 ML IV SCH ×2 (04:46→13:00)
[2018-09-21] MEDS: DIPHENHYDRAMINE 50MG/ML VIAL IV PRN ×3 (04:49→20:27)
[2018-09-21 06:49] LABS: BASOPHILS % 0.3 % (0.0-2.0); EOSINOPHILS % 4.7 % (0.0-5.0); HEMATOCRIT. 34.5 % (36.0-48.0); HEMOGLOBIN. 11.4 g/dL (12.0-16.0); LYMPHOCYTES % 12.5 % (20.0-50.0); MEAN CORPUSCULAR HEMOGLOBIN 32.1 pg (28.0-32.0); MEAN CORPUSCULAR VOLUME 97.1 fL (81.0-99.0); MEAN PLATELET VOLUME 6.7 fl (7.4-10.4); MONOCYTES % 5.7 % (2.0-8.0); NEUTROPHILS % 76.8 % (40.0-76.0); PLATELET 452 x1000/uL (130-400); RED BLOOD CELL COUNT 3.56 mill/uL (4.2-5.4)
[2018-09-21 07:45] LABS: CHLORIDE 103 mEq/L (98-107)
[2018-09-21 08:00] VITALS: BP 180/107
[2018-09-21] MEDS: FAMOTIDINE 20MG/2ML VIAL IV SCH ×2 (08:39→23:04)
[2018-09-21 12:00] VITALS: BP 161/101
[2018-09-21] MEDS: ENOXAPARIN 40MG/0.4ML SYR SUBCUT SCH (12:44)
[2018-09-21] MEDS ORDERED: ALBU05 NEB (15:29)
[2018-09-21 16:00] VITALS: BP 168/110
[2018-09-21 20:00] VITALS: BP 163/106
[2018-09-22] VITALS: BP_SYST 142
[2018-09-22] MEDS: ACETAMINOPHEN 650MG SUPP PR PRN (00:39)
[2018-09-22] MEDS: HYDROMORPHONE HCL/PF 2MG/ML CPJ IV PRN ×5 (00:41→15:03)
[2018-09-22 04:00] VITALS: BP 114/74
[2018-09-22 06:43] LABS: BASOPHILS % 0.4 % (0.0-2.0); EOSINOPHILS % 0.8 % (0.0-5.0); HEMATOCRIT. 30.8 % (36.0-48.0); HEMOGLOBIN. 10.2 g/dL (12.0-16.0); MEAN CORPUSCULAR HEMOGLOBIN 31.7 pg (28.0-32.0); MEAN CORPUSCULAR VOLUME 95.9 fL (81.0-99.0); MEAN PLATELET VOLUME 7.8 fl (7.4-10.4); MONOCYTES % 4.8 % (2.0-8.0); PLATELET 391 x1000/uL (130-400); RED BLOOD CELL COUNT 3.21 mill/uL (4.2-5.4)
[2018-09-22 06:59] LABS: CHLORIDE 98 mEq/L (98-107)
[2018-09-22 08:00] VITALS: BP 126/80
[2018-09-22] MEDS: DIPHENHYDRAMINE 50MG/ML VIAL IV PRN ×2 (08:03→23:19)
[2018-09-22] MEDS: FAMOTIDINE 20MG/2ML VIAL IV SCH ×2 (08:55→22:24)
[2018-09-22] MEDS: ENOXAPARIN 40MG/0.4ML SYR SUBCUT SCH (11:22)
[2018-09-22 12:05] VITALS: BP 144/98
[2018-09-22 16:00] VITALS: BP 134/86
[2018-09-22] MEDS: TRAMADOL 50MG TABLET PO PRN ×2 (18:15→22:30)
[2018-09-22 20:00] VITALS: BP 151/99
[2018-09-23] VITALS: BP 141/101
[2018-09-23 04:00] VITALS: BP 131/97
[2018-09-23 09:13] LABS: BASOPHILS % 0.2 % (0.0-2.0); EOSINOPHILS % 0.7 % (0.0-5.0); HEMATOCRIT. 31.7 % (36.0-48.0); HEMOGLOBIN. 10.5 g/dL (12.0-16.0); MEAN CORPUSCULAR HEMOGLOBIN 31.6 pg (28.0-32.0); MEAN CORPUSCULAR VOLUME 95.6 fL (81.0-99.0); MEAN PLATELET VOLUME 7.4 fl (7.4-10.4); NEUTROPHILS % 84.1 % (40.0-76.0); PLATELET 362 x1000/uL (130-400); RED BLOOD CELL COUNT 3.32 mill/uL (4.2-5.4); RED CELL DISTRIBUTION WIDTH 13.2 % (11.6-14.6)
[2018-09-23 10:05] LABS: CHLORIDE 100 mEq/L (98-107)
[2018-09-23] MEDS: TRAMADOL 50MG TABLET PO PRN (10:53)
[2018-09-23 11:17] VITALS: BP 137/87
== END 2018-09-23 13:00 | disposition home or self-care (01) | DRG 230 ==
LOC: ER 08:28 → 6EST 10:12 → ENRESERV 12:34
PROVIDERS: ADMIT Internal Medicine; ATTEND Internal Medicine
PROC: 0DB80ZZ Excision of Small Intestine, Open Approach (ICD-10-PCS; principal; 2018-09-17)
PROC: 02HV33Z Insertion of Infusion Device into Superior Vena Cava, Percutaneous Approach (ICD-10-PCS; 2018-09-18)
PROC: B5181ZA Fluoroscopy of Superior Vena Cava using Low Osmolar Contrast, Guidance (ICD-10-PCS; 2018-09-18)
PROC: B548ZZA Ultrasonography of Superior Vena Cava, Guidance (ICD-10-PCS; 2018-09-18)
DX: K56.609 Unspecified intestinal obstruction, unspecified as to partial versus complete obstruction (principal); E11.9 Type 2 diabetes mellitus without complications; J45.909 Unspecified asthma, uncomplicated; G40.909 Epilepsy, unspecified, not intractable, without status epilepticus; E86.0 Dehydration; F99 Mental disorder, not otherwise specified; Z90.710 Acquired absence of both cervix and uterus; Z90.49 Acquired absence of other specified parts of digestive tract; Z88.8 Allergy status to other drugs, medicaments and biological substances
CPT/HCPCS: 36415; 36569; 36573; 71045; 74018; 74176; 74250; 80048; 80320; 83036; 86850; 86900; 88307; 93970; 97116; 97162; 97166; 97168; 97530; 99285; C1725; C1893; J0330; J0360; J0690; J1170; J1200; J1630; J1650; J1885; J2250; J2270; J2370; J2405; J2704; J2710; J2765; J3010; J3480; J3490; J7042; J7060; Q9963; G0480

== ENCOUNTER 2020-07-24 10:35 | Emergency (ER) | payer MEDICAID ==
[~2020-07-24] VITALS: Ht 160 cm; Wt 68.0 kg
[~2020-07-24 10:35] MED LIST: ALBU05 NEB
[2020-07-24 11:39] LABS: BASOPHILS % 0.8 % (0.0-2.0); EOSINOPHILS % 4.7 % (0.0-5.0); HEMATOCRIT. 35.2 % (36.0-48.0); HEMOGLOBIN. 12.4 g/dL (12.0-16.0); LYMPHOCYTES % 33.3 % (20.0-50.0); MEAN CORPUSCULAR HEMOGLOBIN 34.1 pg (28.0-32.0); MEAN CORPUSCULAR VOLUME 96.7 fL (81.0-99.0); MEAN PLATELET VOLUME 7.6 fl (7.4-10.4); MONOCYTES % 6.1 % (2.0-8.0); NEUTROPHILS % 55.1 % (40.0-76.0); PLATELET 299 x1000/uL (130-400); RED BLOOD CELL COUNT 3.64 mill/uL (4.2-5.4)
[2020-07-24 11:44] LABS: CHLORIDE 114 mEq/L (98-107)
[2020-07-24 12:02] LABS: ETHANOL BLOOD 407 mg/dL
[2020-07-24 16:08] VITALS: BP 135/72
== END 2020-07-24 16:13 | disposition home or self-care (01) ==
LOC: ER 10:45
DX: F10.229 Alcohol dependence with intoxication, unspecified (principal); Y90.8 Blood alcohol level of 240 mg/100 ml or more; R03.0 Elevated blood-pressure reading, without diagnosis of hypertension; R90.82 White matter disease, unspecified; J98.11 Atelectasis; E11.9 Type 2 diabetes mellitus without complications; G40.909 Epilepsy, unspecified, not intractable, without status epilepticus; J45.909 Unspecified asthma, uncomplicated; F17.210 Nicotine dependence, cigarettes, uncomplicated; Z90.49 Acquired absence of other specified parts of digestive tract
CPT/HCPCS: 36415; 70450; 74176; 80053; 80307; 80320; 80329; 83690; 84484; 85025; 93005; 99285; Z7610; G0480

== ENCOUNTER 2020-07-24 17:57 | Emergency (ER) | payer MEDICAID ==
[~2020-07-24] VITALS: Ht 154.9 cm; Wt 55.0 kg
[2020-07-25 01:40] VITALS: BP 132/82
== END 2020-07-25 01:41 | disposition home or self-care (01) ==
LOC: ER 17:57
DX: F10.229 Alcohol dependence with intoxication, unspecified (principal); Y90.0 Blood alcohol level of less than 20 mg/100 ml; J45.909 Unspecified asthma, uncomplicated; E11.9 Type 2 diabetes mellitus without complications; Z90.710 Acquired absence of both cervix and uterus; Z98.890 Other specified postprocedural states; Z88.6 Allergy status to analgesic agent
CPT/HCPCS: 99285